=== PATIENT | female | born 1950 | race Caucasian/White ===

== ENCOUNTER 2019-01-09 08:00 | Outpatient (CLI) | payer MEDICARE, OTHER | END 2019-01-09 09:00 | disposition home or self-care (01) | LOC: D.MAMMO 08:00 | PROVIDERS: ATTEND Family Medicine | DX: Z12.31 Encounter for screening mammogram for malignant neoplasm of breast (principal) ==

== ENCOUNTER 2019-02-22 19:00 | Outpatient (CLI) | payer MEDICARE, OTHER | END 2019-02-22 23:59 | disposition home or self-care (01) | LOC: D.MAMMO 19:00 | PROVIDERS: ATTEND Family Medicine | DX: R92.8 Other abnormal and inconclusive findings on diagnostic imaging of breast (principal) ==

== ENCOUNTER 2020-11-05 08:00 | Outpatient (CLI) | payer MEDICARE, OTHER ==
[~2020-11-05] VITALS: Ht 165.1 cm; Wt 78.5 kg
[2020-11-05] MEDS ORDERED: METFORMIN HCL500 M1 PO (11:36)
[2020-11-05] MEDS ORDERED: LIPITOR20 MG PO (11:37)
[2020-11-05] MEDS ORDERED: BYSTOLIC5 MG PO (11:38)
[2020-11-05] MEDS ORDERED: MIRAPEX0.5 MG PO (11:39)
[2020-11-05] MEDS ORDERED: MELATONIN 3 MG1 TAB PO (11:39)
[2020-11-05 12:28] LABS: BASOPHILS 0.3 % (0-2); HEMATOCRIT 39.6 % (36.0-48.0); HEMOGLOBIN 12.8 g/dL (12-16); IMMATURE GRANULOCYTES 0.1 % (0-5); LYMPHOCYTE ABS# 3.01 10x3/uL (1.18-3.74); LYMPHOCYTES 30.9 % (15-50); MCH 29.2 pg (26.0-34.0); MCHC 32.3 g/dL (31.0-37.0); MCV 90.4 fL (80.0-100.0); MEAN PLATELET VOLUME 11.4 fL (7.4-10.4); MONOCYTES 5.3 % (2-11); NEUTROPHIL ABS# 5.87 10x3/uL (1.56-6.13); NEUTROPHILS 60.4 % (40-80); PLATELET COUNT 214 10x3/uL (130-400); RBC 4.38 10x6/uL (4.00-5.40); RDW 12.4 % (11.5-14.5); WBC 9.7 10x3/uL (4.8-10.8)
[2020-11-05 12:37] LABS: CALC OSMOLALITY 278 mosm/kg (275-300); CALCIUM 9.7 mg/dL (8.5-10.1); CARBON DIOXIDE 27.7 mmol/L (21.0-32.0); CHLORIDE - SERUM 102 mmol/L (98-107); CREATININE - SERUM 0.7 mg/dL (0.6-1.3); GLUCOSE 138 mg/dL (74-106); POTASSIUM - SERUM 3.9 mmol/L (3.5-5.1); SODIUM 138 mmol/L (136-145); UREA NITROGEN 14 mg/dL (7-18); eGFR NON AFRICAN AMERICAN 88 mL/min (90-120)
[2020-11-12 07:57] VITALS: Ht 165.1 cm; Wt 78.5 kg
[2020-11-12] MEDS ORDERED: MULTI-DAY VITAM1 TAB PO (08:09)
[2020-11-12] MEDS ORDERED: HYDROCODON-ACE1 EA10 PO (10:21)
== END 2020-11-05 08:01 | disposition home or self-care (01) ==
LOC: D.OPS 08:00 → EDSTATUS 11-07 09:00 → D.OPS 11-07 09:00
PROVIDERS: Anesthesiology; ATTEND Surgery
DX: K80.20 Calculus of gallbladder without cholecystitis without obstruction (principal)

== ENCOUNTER 2020-12-14 19:57 | Emergency (ER) | payer MEDICARE, OTHER ==
[~2020-12-14] VITALS: Ht 165.1 cm; Wt 77.3 kg
[~2020-12-14 19:57] MED LIST: BYSTOLIC5 MG PO; HYDROCODON-ACE1 EA10 PO; LIPITOR20 MG PO; MELATONIN 3 MG1 TAB PO; METFORMIN HCL500 M1 PO; MIRAPEX0.5 MG PO; MULTI-DAY VITAM1 TAB PO
[2020-12-14 20:02] VITALS: Ht 165.1 cm; Wt 77.3 kg
[2020-12-14 20:47] LABS: BASOPHILS 0.6 % (0-2); EOSINOPHILS 8.7 % (0-7); HEMATOCRIT 36.5 % (36.0-48.0); HEMOGLOBIN 11.8 g/dL (12-16); IMMATURE GRANULOCYTES 0.2 % (0-5); LYMPHOCYTE ABS# 4.01 10x3/uL (1.18-3.74); LYMPHOCYTES 32.5 % (15-50); MCH 29.2 pg (26.0-34.0); MCHC 32.3 g/dL (31.0-37.0); MCV 90.3 fL (80.0-100.0); MEAN PLATELET VOLUME 11.8 fL (7.4-10.4); MONOCYTES 5.8 % (2-11); NEUTROPHIL ABS# 6.43 10x3/uL (1.56-6.13); NEUTROPHILS 52.2 % (40-80); PLATELET COUNT 198 10x3/uL (130-400); RBC 4.04 10x6/uL (4.00-5.40); RDW 12.7 % (11.5-14.5); WBC 12.3 10x3/uL (4.8-10.8)
[2020-12-14 20:49] LABS: BILIRUBIN NEGATIVE (NEGATIVE); KETONE NEGATIVE (NEGATIVE); NITRITE NEGATIVE (NEGATIVE); UROBILINOGEN NORMAL mg/dL (< 2)
[2020-12-14 20:57] LABS: CALC OSMOLALITY 287 mosm/kg (275-300); CALCIUM 9.2 mg/dL (8.5-10.1); CARBON DIOXIDE 28.5 mmol/L (21.0-32.0); CHLORIDE - SERUM 105 mmol/L (98-107); CREATININE - SERUM 0.9 mg/dL (0.6-1.3); GLUCOSE 131 mg/dL (74-106); POTASSIUM - SERUM 3.8 mmol/L (3.5-5.1); SODIUM 143 mmol/L (136-145); UREA NITROGEN 15 mg/dL (7-18); eGFR NON AFRICAN AMERICAN 66 mL/min (90-120)
[2020-12-14 21:06] LABS: ALBUMIN 3.9 g/dL (3.4-5.0); ALKALINE PHOSPHATASE 89 U/L (30-120); ALT (SGPT) 26 U/L (10-68); AMYLASE - SERUM 38 U/L (25-115); BILIRUBIN - TOTAL 0.33 mg/dL (0.2-1.3); LIPASE 80 U/L (73-393); PROTEIN - SERUM 7.3 g/dL (6.4-8.2)
[2020-12-14 21:13] LABS: TROPONIN-I < 0.017 ng/mL (0.000-0.060)
[2020-12-14 23:42] VITALS: BP 150/86
== END 2020-12-14 23:43 | disposition home or self-care (01) ==
LOC: D.ER 19:57
PROVIDERS: Family Medicine
DX: R10.9 Unspecified abdominal pain (principal); G89.18 Other acute postprocedural pain; E11.9 Type 2 diabetes mellitus without complications; I10 Essential (primary) hypertension; Z79.84 Long term (current) use of oral hypoglycemic drugs